=== PATIENT | female | born 1990 | race Caucasian/White ===

== ENCOUNTER 2016-12-29 10:36 | Inpatient (IN) | payer MEDICAID ==
[~2016-12-29] VITALS: Ht 162.6 cm; Wt 88.0 kg
[~2016-12-29 10:36] MED LIST: PREN-46 PO
[2016-12-29 11:00] VITALS: Ht 162.6 cm; Wt 88.0 kg
--- NOTE | 2016-12-29 11:00 | TRIAGE ---
OB Triage Datetime Report Generated by CPN: 12/29/2016 10:59 Datetime: 12/29/2016 10:50 Time of Arrival: 12/29/2016 10:30 Arrived By: Ambulatory Arrived From: Home Chief Complaint: SROM SINCE 899 Movement: Present Contractions: Irregular Rupture of Membranes: Ruptured Vaginal Bleeding: None Vaginal Discharge: Denies Recent Sexual Intercouse: Denies Abdominal Trauma: Not Applicable Patient Complaints: Contractions; Other Time Provider Notified: 12/29/2016 10:51 Provider Notified: DR MORRIS Initial Plan: EFM CALL DR BOWSERFHIAN Datetime: 12/29/2016 10:48 Maternal Assessment Level of Consciousness: Fully Conscious DTR's/Clonus: DTRs 2+ Headache: Denies Blurred Vision: No Nausea/Vomiting: Denies Facial Edema: None Labor Evaluation Frequency: IRREG Monitor Mode: External Duration (sec)2399: 60 Quality: Moderate Pattern: Normal: <= 5 Contractions in 10 Minutes Resting Tone [place]: Relaxed Heart Rate FHR Baseline Rate: 145 Monitor Mode: External US FHR Baseline Changes: No Baseline Change Variability: Moderate 6-25 bpm Accelerations: 15X15 Decelerations: None Category: Category I Pain Assessment Pain Scale: 5 Pain Presence: Intermittent Pain Type: Contraction Pain Location: Abdomen Pain Goal: 1 Vaginal Exam Dilatation (cms): 5.0 Effacement (%): 80 Station: -3 Membrane Status: Ruptured Membranes Rupture Method: Spontaneous Amniotic Fluid Color: Light Meconium Amniotic Fluid Amount: Large Amniotic Fluid Odor: None Vaginal Bleeding: None Cervix, Consistency: Soft Cervix, Position: Anterior Presentation 'A': Cephalic
[2016-12-29 11:01] VITALS: BP 118/79; PULSE 70; RESP 20
[2016-12-29] MEDS ORDERED: LACTATED RINGER'S 1,000 ML IV SCH (11:03)
[2016-12-29] MEDS ORDERED: LACTATED RINGER'S 1,000 ML IV PRN (11:03)
[2016-12-29 11:26] LABS: BASOPHILS % 0.1 % (0.0-2.0); EOSINOPHILS % 0.5 % (0.0-7.0); HEMATOCRIT 35.1 % (37.0-47.0); LYMPHOCYTES # 1.9 10^3/ul (0.8-2.9); LYMPHOCYTES % 24.8 % (15.0-51.0); MEAN CORPUSCULAR HEMOGLOBIN 30.8 pg (29.0-33.0); MEAN CORPUSCULAR HGB CONC 34.2 g/dl (32.0-37.0); MEAN PLATELET VOLUME 12.3 fl (7.4-10.4); MONOCYTE # 0.4 10^3/ul (0.3-0.9); MONOCYTES % 5.4 % (0.0-11.0); NEUTROPHIL # 5.2 10^3/ul (1.6-7.5); NEUTROPHILS % 68.5 % (39.0-77.0); PLATELET COUNT 155 10^3/UL (140-415); RED CELL DISTRIBUTION WIDTH 13.3 % (11.5-14.5); WHITE BLOOD COUNT 7.5 10^3/ul (4.8-10.8)
[2016-12-29] MEDS ORDERED: BUTORPHANOL 2 MG INJ IV PRN (11:30)
[2016-12-29] MEDS ORDERED: LIDOCAINE 1% (MPF) 30 ML INJ INJ PRN (11:30)
[2016-12-29] MEDS ORDERED: OXYTOCIN 30 UNITS/LR 500 ML IV PRN (11:30)
[2016-12-29] MEDS ORDERED: AMPICILLIN 2 GM/NS (PMX) 100 ML IV ONE (11:30)
[2016-12-29] MEDS ORDERED: IBUPROFEN 600 MG TAB PO PRN (11:30)
[2016-12-29] MEDS ORDERED: MISOPROSTOL 200 MCG TAB PR PRN ×2 (11:30→17:00)
[2016-12-29] MEDS ORDERED: METHYLERGONOVINE 0.2 MG INJ IM PRN ×2 (11:30→17:00)
[2016-12-29] MEDS ORDERED: OXYTOCIN 30 UNITS/LR 500 ML IV SCH ×2 (11:30)
[2016-12-29] MEDS ORDERED: CARBOPROST 250 MCG INJ IM PRN ×2 (11:30→17:00)
[2016-12-29 11:44] LABS: INR 0.9; PARTIAL THROMBOPLASTIN TIME 26.4 Sec (25.0-35.0); PROTIME 12.1 Sec (12.2-14.2); PT RATIO 0.9
--- NOTE | 2016-12-29 13:00 | RADRPT ---
PROCEDURE: US OB. CLINICAL INDICATION: Size and dates , contractions TECHNIQUE: Multiple sonographic images of the pelvis and gravid uterus were obtained. The images were reviewed on a PACS workstation. COMPARISON: No prior studies are available for comparison. FINDINGS: There is a single viable intrauterine gestation. Cardiac activity is present with 146 beats per min [place]. There is a vertex presentation. The placenta is anterior. There is no evidence for an abruption or placenta previa. Measurements were made in order to determine age. The results are as follows: BPD =9.3 cm HC =33.1 cm AC =33.6 cm FL =7.2 cm Estimated gestational age of approximately 37 weeks and 3 days based on ultrasound measurements. Clinical age: 38 weeks and 3 days. The estimated date of delivery is 01/16/2017, based on ultrasound measurements. The EFW = 3200 g, 38%, based on LMP age. RPTAT: AA IMPRESSION: Single viable intrauterine gestation of approximately 37 weeks and 3 days based on ultrasound measu rements. .Wally Machado MD, Date Time Electronically viewed and signed by .Wally Machado MD, on 12/29/2016 12:59 .S/
[2016-12-29] MEDS ORDERED: AMPICILLIN 1 GM/NS (PMX) 50 ML IV SCH (15:00)
[2016-12-29] MEDS ORDERED: MINERAL OIL LIGHT 10 ML VIAL TOP ONE (16:30)
[2016-12-29] MEDS ORDERED: LACTATED RINGER'S 1,000 ML IV* SCH (16:50)
--- NOTE | 2016-12-29 16:54 | LDN ---
Date/Time of Note Date/Time of Note DATE: 12/29/16 TIME: 16:53 Delivery Summary Weeks of Gestation 38 Placenta Delivered: Spontaneously Meconium: Light Anesthesia type: None Sponge & Needle done & correct: Yes All needle counts correct: Yes Any foreign bodies felt in the: No Problems: Infant Delivery Information Sex Infant Sex: female Apgars 1 Minute: 9 5 Minute: 9 Suctioning Nose & mouth suctioned at tate: No Delee suction performed: No Umbilical Cord Umbilical cord with: 3 Vessels Cord presentations: nuchal cord Nuchal cord present X: 1 Cord Blood was obtained: Yes NICOLASA MORRIS MD Dec 29, 2016 16:54
[2016-12-29] MEDS ORDERED: WITCH HAZEL/GLYCERIN PAD PR PRN (17:00)
[2016-12-29] MEDS ORDERED: ACETAMINOPHEN 325 MG TAB PO PRN (17:00)
[2016-12-29] MEDS ORDERED: OXYCODONE/ASPIRIN (4.88/325) TAB PO PRN ×2 (17:00)
[2016-12-29] MEDS ORDERED: BENZOCAINE 20% 56 ML SPRAY TOP PRN (17:00)
[2016-12-29] MEDS ORDERED: LANOLIN 7 GM TUBE TOP PRN (17:00)
[2016-12-29] MEDS ORDERED: SENNA/DOCUSATE NA (8.6MG/50MG) TAB PO PRN (17:00)
[2016-12-29] MEDS ORDERED: DIBUCAINE 1% 30 GM OINT PR PRN (17:00)
[2016-12-29] MEDS ORDERED: ONDANSETRON 4 MG INJ IV PRN (17:00)
[2016-12-29 18:30] VITALS: BP 129/76; PULSE 73; RESP 16
[2016-12-29] MEDS: IBUPROFEN 600 MG TAB PO SCH ×2 (18:42→23:46)
--- NOTE | 2016-12-29 19:25 | PREOPHP ---
DATE OF ADMISSION: 12/29/2016 HISTORY OF PRESENT ILLNESS: The patient is a 26-year-old, 3, para 2, EDC 01/09/2017, intrauterine at 38 weeks and 3 days gestational age, presented to triage complaining of regular contractions with spontaneous rupture of membranes since 9 o'clock this morning. She denies any vaginal bleeding. Her care took place at [facility]. PAST MEDICAL HISTORY: None. MEDICATIONS: vitamins. PAST SURGICAL HISTORY: None. OBSTETRICAL HISTORY: Times 2 vaginal delivery. GYNECOLOGIC HISTORY: 34 days. Denies any sexually transmitted disease. Sexually active with 1 partner. SOCIAL HISTORY: Denies any smoking, drugs, or alcohol. FAMILY HISTORY: None. REVIEW OF SYSTEMS: All within normal except history of present illness. PHYSICAL EXAMINATION: HEENT: Within normal limits. HEART: S1, S2. Regular rhythm. ABDOMEN: Gravid and nontender. Negative bilaterally. EXTREMITIES: Negative calf tenderness. PELVIC: Vaginal examination on admission, 570 minus 3. heart tracing category 1 with irregular contractions. The pain level of 5 out of 10. ASSESSMENT: Intrauterine at term and labor. PLAN: Expectant vaginal delivery. Dictated By: Julián Park MD /gil/yasirc /Document#: [id number]
[2016-12-29 19:40] VITALS: BP 120/76; PULSE 72; RESP 19
[2016-12-29] MEDS: OXYTOCIN 30 UNITS/LR 500 ML IV PRN (21:13)
[2016-12-29] MEDS: SENNA/DOCUSATE NA (8.6MG/50MG) TAB PO SCH (21:18)
[2016-12-29] MEDS ORDERED: MISOPROSTOL 200 MCG TAB PR ONE (21:28)
[2016-12-30 00:16] LABS: BASOPHILS % 0.2 % (0.0-2.0); EOSINOPHILS % 0.2 % (0.0-7.0); HEMATOCRIT 33.2 % (37.0-47.0); HEMOGLOBIN 11.3 g/dl (12.0-16.0); LYMPHOCYTES # 2.3 10^3/ul (0.8-2.9); LYMPHOCYTES % 18.1 % (15.0-51.0); MEAN CORPUSCULAR HEMOGLOBIN 30.5 pg (29.0-33.0); MEAN CORPUSCULAR VOLUME 89.7 fl (82.0-101.0); MEAN PLATELET VOLUME 12.2 fl (7.4-10.4); MONOCYTE # 0.6 10^3/ul (0.3-0.9); MONOCYTES % 5.1 % (0.0-11.0); NEUTROPHIL # 9.5 10^3/ul (1.6-7.5); PLATELET COUNT 142 10^3/UL (140-415); RED CELL DISTRIBUTION WIDTH 13.2 % (11.5-14.5); WHITE BLOOD COUNT 12.5 10^3/ul (4.8-10.8)
[2016-12-30] MEDS ORDERED: DIPHENHYDRAMINE 50 MG INJ ONE (00:33)
[2016-12-30] MEDS ORDERED: DIPHENHYDRAMINE 50 MG INJ IV ONE (01:00)
[2016-12-30] MEDS ORDERED: METHYLPREDNISOLONE 125 MG INJ IV ONE (01:00)
[2016-12-30] MEDS: OXYTOCIN 30 UNITS/LR 500 ML IV PRN (01:16)
--- NOTE | 2016-12-30 01:17 | QN ---
Documentation Comment day 1 Status post I was called to evaluate the patient for hemorrhage Patient received 800 mcg Cytotec per rectum Hemabate 1 dose which she had an allergic reaction to the medication Vital signs stable with elevated BPs Afebrile and stable Hemoglobin 11.3 Abdomen fundus firm, not distended and nontender Vaginal exam performed and expressed some dark red to black blood clots Extremities nontender Assessment/ plan Keep Cuello in place overnight 1 more dose of Cytotec 200 mcg per rectum Keep with IV fluids plus oxytocin Continue with present management DERECK ROSADO MD Dec 30, 2016 01:17
[2016-12-30] MEDS ORDERED: MISOPROSTOL 200 MCG TAB PR PRN (01:30)
[2016-12-30] MEDS: OXYTOCIN 30 UNITS/LR 500 ML IV SCH ×3 (01:30→09:30)
[2016-12-30 04:05] VITALS: BP 124/81; PULSE 70; RESP 18
[2016-12-30] MEDS: LACTATED RINGER'S 1,000 ML IV SCH ×2 (05:21→09:30)
[2016-12-30] MEDS: IBUPROFEN 600 MG TAB PO SCH ×4 (05:31→23:40)
[2016-12-30 08:00] VITALS: BP 124/66; PULSE 70; RESP 18
[2016-12-30] MEDS: SENNA/DOCUSATE NA (8.6MG/50MG) TAB PO SCH ×2 (08:29→21:21)
[2016-12-30 09:33] LABS: BASOPHILS % 0.2 % (0.0-2.0); HEMATOCRIT 34.2 % (37.0-47.0); HEMOGLOBIN 11.3 g/dl (12.0-16.0); LYMPHOCYTES # 1.6 10^3/ul (0.8-2.9); LYMPHOCYTES % 11.9 % (15.0-51.0); MEAN CORPUSCULAR VOLUME 90.7 fl (82.0-101.0); MEAN PLATELET VOLUME 12.6 fl (7.4-10.4); MONOCYTE # 0.2 10^3/ul (0.3-0.9); MONOCYTES % 1.5 % (0.0-11.0); NEUTROPHIL # 11.2 10^3/ul (1.6-7.5); NEUTROPHILS % 85.8 % (39.0-77.0); PLATELET COUNT 145 10^3/UL (140-415); RED BLOOD COUNT 3.77 10^6/ul (4.20-5.40); RED CELL DISTRIBUTION WIDTH 13.4 % (11.5-14.5)
--- NOTE | 2016-12-30 12:39 | QN ---
Documentation Comment Progress note day 1 Patient was seen and evaluated awake alert oriented 3 denies any headache nausea vomiting shortness of breath visual changes epigastric pain positive ambulation tolerating diet positive flatulence currently with Cuello clear Vital signs stable afebrile Abdomen soft nontender uterine fundus below umbilicus firm Extremity negative edema no calf tenderness Vaginal exam no active vaginal bleeding Assessment status post vaginal delivery day 1 with hemorrhage Currently stable and afebrile Plan repeat CBC tomorrow consider discharge home is stable Discontinue Cuello NICOLASA MORRIS MD Dec 30, 2016 12:39
[2016-12-30 15:36] VITALS: BP 117/69; PULSE 70; RESP 16
[2016-12-30 20:30] VITALS: BP 108/56; PULSE 59; RESP 16
[2016-12-31 04:00] VITALS: BP 112/57; PULSE 74; RESP 18
[2016-12-31] MEDS: IBUPROFEN 600 MG TAB PO SCH ×2 (05:42→11:39)
[2016-12-31 07:51] VITALS: BP 106/63; PULSE 66; RESP 8
[2016-12-31] MEDS: SENNA/DOCUSATE NA (8.6MG/50MG) TAB PO SCH (08:50)
[2016-12-31 09:59] LABS: BASOPHILS % 0.3 % (0.0-2.0); EOSINOPHILS # 0.1 10^3/ul (0.0-0.5); EOSINOPHILS % 0.9 % (0.0-7.0); HEMATOCRIT 31.3 % (37.0-47.0); LYMPHOCYTES % 31.8 % (15.0-51.0); MEAN CORPUSCULAR HEMOGLOBIN 29.8 pg (29.0-33.0); MEAN CORPUSCULAR HGB CONC 31.9 g/dl (32.0-37.0); MEAN CORPUSCULAR VOLUME 93.2 fl (82.0-101.0); MEAN PLATELET VOLUME 12.6 fl (7.4-10.4); MONOCYTE # 0.5 10^3/ul (0.3-0.9); MONOCYTES % 5.8 % (0.0-11.0); NEUTROPHIL # 5.6 10^3/ul (1.6-7.5); NEUTROPHILS % 60.2 % (39.0-77.0); PLATELET COUNT 146 10^3/UL (140-415); RED BLOOD COUNT 3.36 10^6/ul (4.20-5.40); RED CELL DISTRIBUTION WIDTH 14.1 % (11.5-14.5); WHITE BLOOD COUNT 9.3 10^3/ul (4.8-10.8)
--- NOTE | 2016-12-31 14:06 | DS ---
Date/Time of Note Date/Time of Note DATE: 12/31/16 TIME: 14:05 Obstetrical Discharge Record Final Diagnosis Final Diagnosis: Term delivered Vaginal Delivery Obstetrical Delivery: Spontaneous Complications Other (post hemmorhage ) Condition on Discharge Physical Assessment Voiding: Yes Bowel Movement: Yes Breast: Soft, non-tender, Filling Fundus: Firm Calf Tenderness: No Patient Condition: NICOLASA Macario MD Dec 31, 2016 14:06
--- NOTE | 2016-12-31 14:07 | PD.PPDC ---
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
[2017-01-01 13:46] LABS: RUBELLA ANTIBODY - IGG <0.90 index
== END 2016-12-31 15:55 | disposition home or self-care (01) | DRG 774 ==
LOC: OBT 10:36 → L-D 10:37 → OBT 10:55 → PP1 18:18
PROVIDERS: ADMIT Obstetrics & Gynecology; ATTEND Obstetrics & Gynecology
PROC: 10E0XZZ Delivery of Products of Conception, External Approach (ICD-10-PCS; principal; 2016-12-29)
DX: O69.81X0 Labor and delivery complicated by cord around neck, without compression, not applicable or unspecified (principal); O72.1 Other immediate postpartum hemorrhage; Z37.0 Single live birth; Z3A.38 38 weeks gestation of pregnancy
CPT/HCPCS: 76815; 85025; 85610; 85730; 86592; 86703; 86762; 86900; 86901; 87340; 99464; G0463; J0290; J1200; J2590; J2930; J7120